=== PATIENT | male | born 1945 | race Caucasian/White ===

== ENCOUNTER 2017-08-26 07:40 | Day surgery (SDC) | payer MEDICARE ==
[2017-08-25 14:41] VITALS: BMI 25.4
[2017-08-26 08:06] LABS: #Basophils 0.1 thou/uL (0.0-0.2); #Eosinphils 0.2 thou/uL (0.0-0.7); #Lymphocytes 1.6 thou/uL (1.20-3.40); #Monocytes 0.4 thou/uL (0.11-0.59); #Neutrophils 2.2 thou/uL (1.40-6.50); %Basophils 1.4 % (0.0-1.0); %Eosinophils 4.7 % (0.0-10.0); %Lymphocytes 34.8 % (21.0-51.0); %Monocytes 9.3 % (0.0-10.0); %Neutrophils 49.7 % (42.0-75.0); Hemoglobin 14.6 g/dL (14.0-18.0); Mean Corpuscular HGB CONC 35.2 g/dL (32.0-36.0); Mean Corpuscular Hemoglobin 35.6 pg (27.0-31.0); Mean Platelet Volume 6.7 fL (7.4-10.4); Platelet Count 170 thou/uL (130-400); RBC Distribution Width 11.7 % (11.5-14.5); White Blood Cell (WBC) Count 4.5 thou/uL (4.8-10.8)
[2017-08-26 08:28] LABS: Anion Gap 9 mmol/L (10-20); BUN (Urea Nitrogen) 24 mg/dL (8.4-25.7); Calc. Creatinine Clearance 69 mL/min (70-130); Calcium 9.1 mg/dL (7.8-10.44); Carbon Dioxide 28 mmol/L (23-31); Chloride 106 mmol/L (98-107); Estimated GFR-MDRD 75; Glucose 107 mg/dL (83-110); Potassium 4.1 mmol/L (3.5-5.1); Sodium 139 mmol/L (136-145)
[2017-08-26] MEDS ORDERED: Fentanyl 100 MCG/2 ML VIAL ONE (08:41)
[2017-08-26] MEDS ORDERED: Midazolam HCl 2 mg/2 ml Vial ONE (08:41)
[2017-08-26] MEDS ORDERED: Promethazine HCl 25 MG/ML VIAL IM PRN (09:11)
[2017-08-26] MEDS ORDERED: Ropivacaine HCl/PF 1,100 MG in Sodium Chloride 0.9% 440 ML NERVE BLCK SCH (09:11)
[2017-08-26] MEDS ORDERED: Zolpidem Tartrate 5 MG TAB PO PRN (09:11)
[2017-08-26] MEDS ORDERED: Ondansetron HCl/PF 4 MG/2 ML Vial IVP PRN (09:11)
[2017-08-26] MEDS ORDERED: HYDROcodone/Acetaminophen 5/325 mg Tablet PO PRN ×2 (09:11)
[2017-08-26] MEDS ORDERED: traMADol HCl 50 MG TAB PO PRN ×2 (09:11)
[2017-08-26] MEDS ORDERED: Fentanyl 100 MCG/2 ML VIAL IV PRN (09:12)
[2017-08-26] MEDS ORDERED: CEFAZOLIN/Water 2 GM/20 ML SYRINGE ONE (10:08)
[2017-08-26] MEDS ORDERED: Ketorolac Tromethamine 30 MG/ML VIAL ONE (10:43)
[2017-08-26] MEDS ORDERED: Ondansetron HCl/PF 4 MG/2 ML Vial ONE ×2 (10:43→11:37)
[2017-08-26] MEDS ORDERED: Dexamethasone 20 MG/5 ML VIAL ONE (10:43)
[2017-08-26] MEDS ORDERED: PROPOFOL 200 MG/20 ML VIAL ONE (10:43)
[2017-08-26] MEDS ORDERED: Ropivacaine 0.5% HCl/PF (150 MG/30 ML VIAL) ONE (10:58)
--- NOTE | 2017-08-26 16:25 | OP ---
DATE OF PROCEDURE: 08/26/2017 PREOPERATIVE DIAGNOSIS: Right quadriceps tendon rupture. POSTOPERATIVE DIAGNOSIS: Right quadriceps tendon rupture. PROCEDURE PERFORMED: Right open quadriceps tendon repair. SURGEON: Jj Bender M.D. OPTIMIZATION ENGINEER: Rudolph Peters PA-C. BLOOD LOSS: Minimal. COMPLICATIONS: None. ANESTHESIA: The patient had general anesthetic. He also had a preoperative catheter placed. IMPLANTS: We used two BioComposite 4.75 mm SwiveLock. We also used multiple sutures. CONDITION: He did go to the recovery room in stable condition. INDICATIONS: A 71-year-old male who this weekend stepped off a tractor, his knee gave way and was un able to extend his leg. At this time, he is presenting for quad tendon repair. DESCRIPTION OF PROCEDURE: After all appropriate consent forms were explained and signed, he was take n to the operating room and at this time was given general anesthetic. Once the level of anesthesia was appropriate, the tourniquet was placed on the right thigh and leg was then prepped and draped in the standard surgical fashion. The limb was then exsanguinated and the tourniquet was taken to 250 m mHg. A 10 blade was used to incise down through skin. Bovie was used to coagulate any brisk venous bleeding. At this time, the quad tendon rupture was immediately noted. All the edges were freshened up with the scissor. There were some hard calcified areas on the end of the tendon and these were r emoved. We then removed a small amount of bone on superior aspect of the patella for aiding and repa iring this tendon to the patella itself. We then decided we were going to use 2 anchors, one on each corner of the patella and then used three drill holes centrally. Two #5 Ethibonds were run up throu gh the tendon in the central aspect going up lateral and medial and coming down centrally. We then d rilled 3 holes through the tendon using suture ligament passer to pull the two central stitches throu gh the center hole. The lateral medial one through the respective hole as well. These were not tied at this time. We then drilled, tapped and placed the anchors in the medial and lateral aspect of th e patella. The two sutures that came with the anchor were then placed through the tendon in mattress fashion. We then pulled over tendons tied. We tied our two central knots. We then tied our medial and lateral knots and all sutures were then cut. We then went ahead and used multiple interrupted V icryls to close our retinacular rent medial and laterally and once our complete repair was done, we w ere able to flex the knee beyond 90 degrees without any movement whatsoever on the repair. At this t delfina, we thoroughly irrigated and dried. We then used a running 0 Stratafix followed by a 3-0 Strataf ix and Surgicel skin glue on top of the skin. Once this dried, a bulky sterile dressing was applied as well as a knee immobilizer. The patient was then awakened. He was taken to the recovery room in stable condition. All counts were correct at the end of the case and he did receive preoperative IV antibiotics.
== END 2017-08-26 14:30 | disposition home or self-care (01) ==
LOC: SDC 07:40
PROVIDERS: ATTEND Orthopaedic Surgery
PROC: 0LQL0ZZ Repair Right Upper Leg Tendon, Open Approach (ICD-10-PCS; principal; 2017-08-26)
DX: S76.111A Strain of right quadriceps muscle, fascia and tendon, initial encounter (principal); M19.90 Unspecified osteoarthritis, unspecified site; Z88.8 Allergy status to other drugs, medicaments and biological substances; Z98.890 Other specified postprocedural states
CPT/HCPCS: 27385; 80048; 85025; 93005; 97116; 97139; C1713; G8978; G8979; G8980; 36415; 93010; J1100; J1885; J2250; J2405; J2704; J2795; J3010; J7050

== ENCOUNTER 2022-08-23 08:53 | Outpatient (CLI) | payer MEDICARE | END 2022-08-23 08:54 | disposition home or self-care (01) | LOC: BICULT 08:53 | PROVIDERS: ATTEND Internal Medicine Gastroenterology | DX: K58.0 Irritable bowel syndrome with diarrhea (principal); K76.6 Portal hypertension; K31.89 Other diseases of stomach and duodenum; K76.0 Fatty (change of) liver, not elsewhere classified; K76.89 Other specified diseases of liver | CPT/HCPCS: 76705 ==